=== PATIENT | female | born 1955 | race Caucasian/White ===

== ENCOUNTER 2016-10-07 08:19 | Inpatient (IN) | payer BC ==
[2016-10-03 20:21] LABS: HEMATOCRIT 42.9 % (36.0-48.0); HEMOGLOBIN 14.1 g/dL (12.0-16.0)
[2016-10-03 20:35] LABS: CALCIUM, SERUM 9.3 MG/DL (8.5-10.4); CHLORIDE, SERUM 106 MMOL/L (96-112); CO2 (CARBON DIOXIDE) 28 MMOL/L (24-34); CREATININE 1.01 MG/DL (0.55-1.02); GFR AFRICAN AMERICAN 71 ML/MIN (>=60); GFR NON AFRICAN AMERICAN 61 ML/MIN (>=60); GLUCOSE, SERUM 150 MG/DL (60-99); SODIUM, SERUM 140 MMOL/L (135-148)
[2016-10-03 20:36] LABS: BUN (BLOOD UREA NITROGEN) 22 MG/DL (6-23); POTASSIUM, SERUM 4.8 MMOL/L (3.5-5.3)
--- NOTE | ~2016-10-07 | OP ---
Record Of Operation [facility] [address] [place]. [address] NAME: GASTON HILLIARD : 57 STATUS : ADM IN [facility]#: [id number] AGE: 60 ADM/REG DATE : 10/07/16 MR#: [id number] REPORT SERV DATE: 10/07/16 DICTATED BY: ADRIÁN HAYES II DATE: 10/07/16 REPORT STATUS : Draft TRANSCRIBED BY: MODL DATE: 10/07/16 DATE OF PROCEDURE: 10/07/2016 PREOPERATIVE DIAGNOSES: 1. C4-C7 stenosis with cervical spondylotic myelopathy. 2. Right upper extremity myeloradiculopathy. POSTOPERATIVE DIAGNOSES: 1. C4-C7 stenosis with cervical spondylotic myelopathy. 2. Right upper extremity myeloradiculopathy. PROCEDURES: 1. C4-5, C5-6, C6-7 anterior interbody arthrodesis. 2. Application of prosthetic devices, C4-5, C5-6, C6-7. 3. Anterior instrumentation, C4-7 (four segments). 4. Use of allograft substitute and bone marrow aspirate. 5. Use of the microscope. SURGEON: Adrián Hayes M.D. FLUIDS: 1400 mL of LR. ESTIMATED BLOOD LOSS: 50 mL. DRAINS: One drain. COMPLICATIONS: None. ANTIBIOTIC: Preoperatively. IMPLANT: Alphatec. PREOPERATIVE HISTORY: This is a very friendly 60-year-old female who is well known to us. She has a history of a lumbar fusion. She recently is having significant falls. She reports that she has difficulty with her balance, and overall, what I would describe as proprioception. She was found to have moderate cord compression. She is having some left lower extremity weakness. This appears to be likely multifactorial. I discussed with her that there could definitely be a contribution from the cervical stenosis, but also from the lumbar issues potentially. She did have also significant complaints of neck pain radiating into the right upper extremity. We discussed the pros and cons of surgery as well as the pros and cons of observation. We discussed the natural history of cervical spondylotic myelopathy. We discussed the risks which include, but are not limited to, significant dysphagia, hoarseness, adjacent segment degeneration, possible stroke and heart attack. DESCRIPTION OF PROCEDURE: After informed consent was obtained, the patient was brought to the operating room at her request and general anesthesia achieved. She was placed in the Record Of Operation [facility] [address] [place]. [address] NAME: GASTON HILLIARD : 57 STATUS : ADM IN PAT#: [id number] AGE: 60 ADM/REG DATE : 10/07/16 MR#: [id number] REPORT SERV DATE: 10/07/16 DICTATED BY: ADRIÁN HAYES II DATE: 10/07/16 REPORT STATUS : Draft TRANSCRIBED BY: MODLolis DATE: 10/07/16 supine position and the neck and iliac crest prepped and draped in a sterile fashion. A 5 mL of bone marrow was aspirated from the iliac crest followed by a right-sided longitudinal incision. The interval was explored and the deep cervical fascia was incised. The subperiosteal exposure was completed and the belt machine operator retractor was placed underneath the longus colli muscles. The Posen pins were placed followed by use of the microscope. Under microscopic visualization, the diskectomy was now completed at C4-5. The disk was removed with the pituitary rongeurs, Kerrison rongeurs, and the curettes. The endplates were denuded of their cartilage with the high-speed leo, Kerrison rongeurs, and the curettes. The posterior vertebral body osteophytes were now removed with the Kerrison rongeurs. The posterior longitudinal ligament was also removed to ensure the adequacy of the canal and foraminal decompression. The prosthetic device was then well placed at C4-5. This contained allograft substitute and bone marrow aspirate. Next, the C5-6 level was addressed in a similar manner. The disk was removed and the endplates prepared with the curettes and the high-speed leo. The posterior longitudinal ligament was also removed and the anterior canal and foramen well decompressed. There was significant compression upon the cord prior to its decompression. The prosthetic device was then trialed and chosen and placed at C5-6. This contained allograft substitute and bone marrow aspirate. After it was acceptably placed, we then worked down to the C6-7 level where the disk material was also removed with the knife followed by use of the pituitary rongeurs, Kerrison rongeurs, and the curettes. The endplates were denuded of their cartilage. The posterior vertebral body osteophytes were then also well removed with the Kerrison rongeurs including the posterior longitudinal ligament. The prosthetic device was then chosen and placed at C6-7. Following removal of the Posen pins, the anterior fixation device was chosen and placed. Two screws were placed in the C4, C5, C6, and C7. Please note, this was a separate plate and screw construct. Multiplanar imaging confirmed acceptable placement of the implants. A deep drain was placed secondary to mild cancellous bone bleeding. The standard closure was now performed, and the patient was then extubated and transferred to PACU in stable condition. The plan will be for postoperative mobilization and as needed perform a workup of her lumbar spine. RITESH/ANTHONY Adrián Hayes II, M.D. / [id number] CC: Record Of [address] [address] NAME: GASTON HILLIARD : 57 STATUS : ADM IN [facility]#: [id number] AGE: 60 ADM/REG DATE : 10/07/16 MR#: [id number] REPORT SERV DATE: 10/07/16 DICTATED BY: ADRIÁN HAYES II DATE: 10/07/16 REPORT STATUS : Draft TRANSCRIBED BY: ANTHONY DATE: 10/07/16 Alireza Morocho II, MD
[~2016-10-07 08:19] MED LIST: AMB10 PO; CELEXA20 PO; JANUMET1 TA1 PO; KOMBIGLYZE XR1 EAC1 PO; LYRICA150 MG PO; LYRICA75 PO; MULTIPLE VIT PO; NORCO1 TA2 PO; NORCO1 TAB PO; NTG150 SL; PRILO PO; SYN1 PO; VENTOLIN HFA INH; VITAMIN D1000 UNI1 PO; VITS/HERBS/SUPPLEMEN; VOLT75 PO; ZANAFLEX 4 MG TA4 MG PO; ZESTORETIC1 TA1 PO; ZOCOR20 PO
[2017-02-25] MEDS ORDERED: PROAIR HFA INH (09:43)
[2017-02-25] MEDS ORDERED: GLUCPH PO (09:46)
[2017-02-25] MEDS ORDERED: [UNRECOGNIZED DRUG - CODE] PO (09:47)
== END 2016-10-09 13:49 | disposition home or self-care (01) | DRG 472 ==
LOC: SDC 08:19 → 3SO 16:26
PROVIDERS: Orthopaedic Surgery
PROC: 07DR3ZZ Extraction of Iliac Bone Marrow, Percutaneous Approach (ICD-10-PCS; principal; 2016-10-07 11:45)
PROC: 0RG20A0 Fusion of 2 or more Cervical Vertebral Joints with Interbody Fusion Device, Anterior Approach, Anterior Column, Open Approach (ICD-10-PCS; principal; 2016-10-07 11:45)
PROC: 4A11X4G Monitoring of Peripheral Nervous Electrical Activity, Intraoperative, External Approach (ICD-10-PCS; principal; 2016-10-07 11:45)
DX: M50.121 Cervical disc disorder at C4-C5 level with radiculopathy (principal); M50.021 Cervical disc disorder at C4-C5 level with myelopathy; Z68.42 Body mass index [BMI] 45.0-49.9, adult; E66.01 Morbid (severe) obesity due to excess calories; J44.9 Chronic obstructive pulmonary disease, unspecified; J45.909 Unspecified asthma, uncomplicated; F41.9 Anxiety disorder, unspecified; F32.9 Major depressive disorder, single episode, unspecified; E03.9 Hypothyroidism, unspecified; I10 Essential (primary) hypertension; K21.9 Gastro-esophageal reflux disease without esophagitis; E11.9 Type 2 diabetes mellitus without complications; M79.7 Fibromyalgia
CPT/HCPCS: 36415; 80048; 82962; 85014; 85018; 87641; 88304; 88311; 93005; 97162-GP; A9270-GY; C1713; J0690; J2250; J2370; J2405; J2710; J3010

== ENCOUNTER 2016-10-12 06:02 | Emergency (ER) | payer BC ==
[2016-10-12 06:30] LABS: BASOPHILS 0.4 %; BASOPHILS ABSOLUTE 0.04 10/3/uL (0.0-0.16); EOSINOPHILS 1.2 %; EOSINOPHILS ABSOLUTE 0.12 10/3/uL (0.0-0.53); HEMOGLOBIN 12.6 g/dL (12.0-16.0); IMMATURE GRANULOCYTES 0.4 %; IMMATURE GRANULOCYTES ABSOLUTE 0.04 10/3/uL (0.0-0.11); LYMPHOCYTES 24.1 %; LYMPHOCYTES ABSOLUTE 2.36 10/3/uL (0.67-4.30); MEAN CORPUS HGB CONC 33.2 g/dL (32.0-36.0); MEAN CORPUSCULAR HEMOGLOB 31.2 pg (26.0-34.0); MEAN CORPUSCULAR VOLUME 93.8 fL (80-100); MEAN PLATELET VOLUME 9.8 fL (9.2-13.0); MONOCYTES 11.5 %; MONOCYTES ABSOLUTE 1.13 10/3/uL (0.21-1.20); NEUTROPHILS 62.4 %; NEUTROPHILS ABSOLUTE 6.11 10/3/uL (2.02-8.40); PLATELET COUNT 347 10/3/uL (150-400); RBC DISTRIBUTION WIDTH 12.6 % (12.0-16.0); WHITE BLOOD CELLS 9.8 10/3/uL (4.5-10.5)
[2016-10-12 06:32] LABS: HEMATOCRIT 37.9 % (36.0-48.0); MANUAL DIFF NO %; RED CELL COUNT 4.04 10/6/uL (4.0-5.6)
[2016-10-12 06:45] LABS: BUN (BLOOD UREA NITROGEN) 15 MG/DL (6-23); CALCIUM, SERUM 9.1 MG/DL (8.5-10.4); CHLORIDE, SERUM 99 MMOL/L (96-112); CO2 (CARBON DIOXIDE) 32 MMOL/L (24-34); CREATININE 0.94 MG/DL (0.55-1.02); GFR AFRICAN AMERICAN 77 ML/MIN (>=60); GFR NON AFRICAN AMERICAN 66 ML/MIN (>=60); GLUCOSE, SERUM 192 MG/DL (60-99); POTASSIUM, SERUM 4.1 MMOL/L (3.5-5.3); SODIUM, SERUM 141 MMOL/L (135-148)
[2017-02-25] MEDS ORDERED: PROAIR HFA INH (09:43)
[2017-02-25] MEDS ORDERED: GLUCPH PO (09:46)
[2017-02-25] MEDS ORDERED: [UNRECOGNIZED DRUG - CODE] PO (09:47)
== END 2016-10-12 07:45 | disposition home or self-care (01) ==
LOC: ER 06:02
PROVIDERS: Nurse Practitioner; Specialist
DX: R22.1 Localized swelling, mass and lump, neck (principal); I10 Essential (primary) hypertension; E11.9 Type 2 diabetes mellitus without complications; F17.200 Nicotine dependence, unspecified, uncomplicated; Z88.5 Allergy status to narcotic agent; Z88.1 Allergy status to other antibiotic agents; Z88.8 Allergy status to other drugs, medicaments and biological substances; Z79.899 Other long term (current) drug therapy
CPT/HCPCS: 70360; 80048; 85025; 99284; A9270-GY